=== PATIENT | male | born 1955 | race Caucasian/White ===

== ENCOUNTER 2016-05-14 14:38 | Emergency (ER) | payer SELFPAY ==
[~2016-05-14] VITALS: Ht 177.8 cm; Wt 98.0 kg
[2016-05-14 14:48] VITALS: BP 134/88; PULSE 66; RESP 16; TEMP 98.5; O2SAT 94
--- NOTE | 2016-05-14 15:43 | PD ---
HPI . Nausea since eating beef broth at Saturday's. Chief Complaint: GI Complaint Time Seen by Provider: 15:43 Travel History International Travel<30 days: No Contact w/Intl Traveler<30days: No Traveled to known affect area: No History of Present Illness HPI 60-year-old male here with complaints of nausea since having some beef product at a restaurant. Patient tells me that he has been a vegetarian for several years and recently had some beef product at right ease. He says that he now has some nausea and indigestion. He says he had these symptoms in the past, where he was a little bit more sick and had to receive anti-emetics and the hospital and upon discharge. He is here comfortably laying in the bed voicing concerns of nausea. He is also requesting that I look at his teeth and prescribe antibiotics. He tells me [employer] will be taking care of this bill. He was actually a patient of mine at the [facility], but recently lost his patient's assistance and will be reapplying for that. He has no abdominal pain and is not vomiting. His vital signs are stable. PFSH Past Medical History Hx Anticoagulant Therapy: No Bipolar Disorder: Yes Cardiovascular Problems: No Chemotherapy: No Cerebrovascular Accident: No Diabetes: No Diminished Hearing: No Respiratory: No Immunizations Current: No Past Surgical History Tonsillectomy: Yes Social History Alcohol Use: No Tobacco Use: No (DENIES) Substance Use: No (HX OF MARIJUANA, COCAINE USE- WAS IN RECOVERY) Allergies-Medications (Allergen,Severity, Reaction): Coded Allergies: No Known Allergies (Verified , 05/14/16) Reported Meds & Prescriptions Reported Meds & Active Scripts Active Phenergan Supp (Promethazine HCl) 12.5 Mg Supp 12.5 Mg RECTAL Q6H PRN Review of Systems General / Constitutional: No: Fever Eyes: No: Visual changes HENT: No: Headaches Cardiovascular: No: Chest Pain or Discomfort Respiratory: No: Shortness of Breath Gastrointestinal: Positive: Nausea, No: Abdominal Pain Genitourinary: No: Dysuria Musculoskeletal: No: Pain Skin: No Rash Neurologic: No: Weakness Psychiatric: No: Depression Endocrine: No: Polydipsia Hematologic/Lymphatic: No: Easy Bruising Physical Exam Narrative GENERAL: AAO x 3, no acute distress, Well-nourished, well-developed patient. Very comfortable resting in the bed. SKIN: Warm and dry. No visible rashes or bruising. HEAD: Normocephalic and atraumatic. EYES: No scleral icterus. No injection or drainage. ENT: No nasal drainage noted. Mucous membranes pink. Airway patent. Dental caries. No active infection or abscess NECK: Supple, trachea midline. No JVD. CARDIOVASCULAR: Regular rate and rhythm without murmurs, gallops, or rubs. RESPIRATORY: Breath sounds equal bilaterally. No accessory muscle use. No rhonchi or rales. GASTROINTESTINAL: Abdomen soft, non-tender, nondistended. Normal active bowel sounds EXTREMITIES: No cyanosis or edema. BACK: Nontender without obvious deformity. No CVA tenderness. PSYCH: AAO x 3, normal affect. Data Data Last Documented VS Vital Signs Date Time Temp Pulse Resp B/P Pulse Ox O2 Delivery O2 Flow Rate FiO2 05/14/16 14:48 98.5 66 16 134/88 94 Orders Promethazine Supp (Phenergan Supp) (05/14/16 16:15) [facility] Medical Decision Making Medical Screen Exam Complete: Yes Emergency Medical Condition: Yes Medical Record Reviewed: Yes Differential Diagnosis Indigestion, GERD, Narrative Course Patient seen and examined. He was medically screened out. A medical screening exam was performed: At the time of evaluation the presenting medical condition was determined not to be of an emergent nature. The patient was given the option of receiving additional care, but declined. Patient was given options for additional community resources from which to obtain care. The Patient Has Been advised to seek medical attention for their presenting complaint. The patient has been advised to return to the ER at any time if an emergent condition develops. Patient asked for a second opinion and was seen by Dr. Cortes. He recommended phenergan supp. as patient has nausea and reports some vomiting. He discussed with patient. When nurse tried to administer medication, patient declined. He didn't want her to administer it. He will be discharged. He has been advised to f/u with his PCP for any acute issues. Diagnosis Primary Impression: Nausea Patient Instructions: General Instructions Additional Instructions: Please return to emergency department if your symptoms return or worsen. Follow up with your primary care provider. Take medications as prescribed. Med/Other Pt SpecificInfo: Prescription(s) given Scripts Promethazine Supp (Phenergan Supp)12.5 Mg Supp12.5 Mg RECTAL Q6H PRN (NAUSEA OR VOMITING) #8 SUPP Ref 0 Prov:Roberto Marquez MD 05/14/16 Condition: Stable Ursula Holman May 14, 2016 15:43
[2016-05-14] MEDS: PROMETHAZINE HCL 12.5 MG SUPP RECTAL ONE (16:15)
[2016-05-14] MEDS ORDERED: PROM2SUP RECTAL (16:20)
== END 2016-05-14 16:40 | disposition home or self-care (01) ==
LOC: PHEFT 14:38
DX: R11.0 Nausea (principal)
CPT/HCPCS: 99283